=== PATIENT | male | born 1995 | race Caucasian/White ===

== ENCOUNTER 2017-05-19 00:10 | Emergency (ER) | payer SELFPAY ==
[~2017-05-19] VITALS: Ht 180.3 cm; Wt 70.3 kg
[2017-05-19] MEDS ORDERED: NAPROSYN500 MG PO (01:06)
== END 2017-05-19 01:25 | disposition home or self-care (01) ==
LOC: ED 00:10
DX: S60.221A Contusion of right hand, initial encounter (principal); F17.200 Nicotine dependence, unspecified, uncomplicated; F10.10 Alcohol abuse, uncomplicated; W00.0XXA Fall on same level due to ice and snow, initial encounter; Y93.89 Activity, other specified; Y92.89 Other specified places as the place of occurrence of the external cause; Y99.8 Other external cause status